=== PATIENT | female | born 1995 | race Caucasian/White ===

== ENCOUNTER 2018-10-04 20:47 | Emergency (ER) | payer OTHER ==
[~2018-10-04 20:47] MED LIST: ALPR-624 PO; ARIP5TAB4 PO; FAMO-128 PO; NITR-60 PO; NO HOME MEDS
== END 2018-10-05 00:13 | disposition left against medical advice (07) ==
LOC: ER 20:47
DX: R10.9 Unspecified abdominal pain (principal); Z53.21 Procedure and treatment not carried out due to patient leaving prior to being seen by health care provider

== ENCOUNTER 2019-06-04 11:11 | Outpatient (CLI) | payer OTHER ==
[~2019-06-04 11:11] MED LIST changes: +ARIP5TAB14 PO; -ARIP5TAB4 PO
== END 2019-06-04 23:59 | disposition home or self-care (01) ==
LOC: 64 CT 11:11
PROVIDERS: ATTEND Family Medicine
DX: Z87.81 Personal history of (healed) traumatic fracture (principal)
CPT/HCPCS: 70486

== ENCOUNTER 2019-09-18 08:53 | Outpatient (CLI) | payer OTHER | END 2019-09-18 23:59 | disposition home or self-care (01) | LOC: RAD 08:53 | PROVIDERS: ATTEND Family Medicine | DX: N83.202 Unspecified ovarian cyst, left side (principal); N83.201 Unspecified ovarian cyst, right side; Z30.432 Encounter for removal of intrauterine contraceptive device | CPT/HCPCS: 76830; 76856 ==

== ENCOUNTER 2019-10-17 17:03 | Emergency (ER) | payer OTHER ==
[~2019-10-17] VITALS: Ht 149.9 cm; Wt 45.5 kg
[2019-10-17 17:04] VITALS: BP 129/74
--- NOTE | 2019-10-17 17:49 | NUR ---
Collected swab and sent to lab.
--- NOTE | 2019-10-20 09:13 | NUR ---
Call[facility]
== END 2019-10-17 18:10 | disposition home or self-care (01) ==
LOC: ER 17:04
DX: R50.9 Fever, unspecified (principal); Z20.828 Contact with and (suspected) exposure to other viral communicable diseases; F41.9 Anxiety disorder, unspecified; F32.9 Major depressive disorder, single episode, unspecified; F12.90 Cannabis use, unspecified, uncomplicated; Z88.8 Allergy status to other drugs, medicaments and biological substances
CPT/HCPCS: 36415; 87635; 99283

== ENCOUNTER 2019-12-03 05:38 | Day surgery (SDC) | payer OTHER ==
[2019-11-27 15:59] LABS: CLARITY,URINE CLEAR (Clear); COLOR,URINE STRAW (Yellow); GLUCOSE, URINE NEGATIVE (Neg); KETONES,URINE NEGATIVE (Neg); LEUKOCYTE ESTERASE ,URINE TRACE (Neg); NITRITES, URINE NEGATIVE (Neg); OCCULT BLOOD,URINE TRACE-INTACT (Neg); PROTEIN,URINE NEGATIVE (Neg); UA COLLECTION TYPE CLN CATCH MIDSTREAM; UROBILINOGEN,URINE 0.2 E.U/dL (0.2-1.0)
[2019-11-27 16:02] LABS: BASOPHILS % (AUTO) 0.5 % (0-1); EOSINOPHILS # (AUTO) 0.1 X10'3 (0-0.9); EOSINOPHILS % (AUTO) 1.1 % (0-6); LYMPHOCYTES # (AUTO) 1.9 X10'3 (1.1-4.8); LYMPHOCYTES % (AUTO) 33.2 % (21-51); MEAN CORPUSCULAR HEMOGLOBIN 32.5 PG (27.0-31.0); MEAN CORPUSCULAR HGB CONC 33.4 g/dL (33.0-36.5); MEAN CORPUSCULAR VOLUME 97.3 FL (78-98); MEAN PLATELET VOLUME 10.8 FL (7.4-10.4); MONOCYTES # (AUTO) 0.4 X10'3 (0-0.9); MONOCYTES % (AUTO) 6.6 % (2-12); NEUTROPHILS # (AUTO) 3.3 X10'3 (1.8-7.7); NEUTROPHILS % (AUTO) 58.6 % (42-75); PRE OP HEMATOCRIT 42.8 % (35.0-45.0); PRE OP HEMOGLOBIN 14.3 g/dL (12.0-16.0); PRE OP PLATELET COUNT 176 X10'3 (140-440); RED CELL DISTRIBUTION WIDTH 12.6 % (11.5-14.5)
[2019-11-27 16:10] LABS: BACTERIA,URINE FEW /HPF (Neg); RBC,URINE 0-2 /HPF (0-2); SQUAMOUS EPITHELIAL CELL,UR MODERATE /LPF (FEW); WBC,URINE 0-4 /HPF (0-4)
[2019-11-27 16:16] LABS: ALBUMIN 4.6 G/DL (3.4-5.0); ALBUMIN/GLOBULIN RATIO 1.3 (1.1-1.5); ALKALINE PHOSPHATASE 61 IU/L (46-116); BLOOD UREA NITROGEN 8 MG/DL (7-18); BUN/CREATININE RATIO 11.4 (6.6-38.0); CALCIUM 9.1 MG/DL (8.5-10.1); CHLORIDE 104 MMOL/L (99-107); PRE OP ALT 14 U/L (30-65); PRE OP ANION GAP 10 (8-16); PRE OP AST 15 U/L (10-37); PRE OP BILIRUB, TOTAL 0.6 MG/DL (0.0-1.0); PRE OP GLUCOSE 84 MG/DL (70-104); PRE OP POTASSIUM 3.6 MMOL/L (3.4-5.1); PRE OP SODIUM 141 MMOL/L (135-145); TOTAL CARBON DIOXIDE 27.4 MMOL/L (24-32); TOTAL PROTEIN 8.2 G/DL (6.4-8.2); eGFR > 90 ML/MIN
[2019-11-27 16:19] LABS: PRE OP INR 1.1 INR; PRE OP PROTIME 11.1 SECONDS (9.0-12.0)
[2019-11-27 16:21] LABS: HCG SERUM QL NEGATIVE
[~2019-12-03] VITALS: Ht 152.4 cm; Wt 45.4 kg
[2019-12-03] VITALS (8 sets, daily range): BP systolic 9–128; BP diastolic 58–98
[~2019-12-03 05:38] MED LIST changes: -ALPR-624 PO; -ARIP5TAB14 PO; -FAMO-128 PO; -NITR-60 PO; +ceFOXitin sod/dextrose 2g/50ml 50 ML IV ONE; +famotidine 20mg tablet PO ONE; +ringers solution, lacted 1,000 ML IV SCH
[2019-12-03] MEDS ORDERED: sevoflurane 250ml liquid IH ONE (07:20)
[2019-12-03] MEDS ORDERED: midazolam 2 mg/2 ml injection ONE (07:22)
[2019-12-03] MEDS ORDERED: fentaNYL/PF 50MCG/1 ML 2ML syringe ONE (07:22)
[2019-12-03] MEDS ORDERED: propofol inj 20 ML IV ONE (07:23)
[2019-12-03] MEDS ORDERED: ondansetron/PF 4mg/2ml inj ONE (07:24)
[2019-12-03] MEDS ORDERED: dexamethasone sod phosphate 4mg/ml inj. ONE (07:24)
[2019-12-03] MEDS ORDERED: LIDOcaine 2% (20mg/ml) 5ml vial ONE (07:24)
--- NOTE | 2019-12-03 08:00 | NUR ---
Received from OR via BED, accompanied by Anesthesiologist --trip- and report given by Anesthesiolgist. PATIENT A&OX4, DENIES PAIN, V/S WNL, NEUROVASCULAR CHECKS INTACT, G PIV UE, SCD ON, perpad with scant spotting.
[2019-12-03] MEDS ORDERED: ringers solution, lacted 1,000 ML IV SCH (08:13)
[2019-12-03] MEDS ORDERED: morphine 4 MG/ML inj SYRINge IV PRN (08:15)
[2019-12-03] MEDS ORDERED: morphine 2 MG/ML inj. syringe IV PRN (08:15)
[2019-12-03] MEDS ORDERED: ondansetron/PF 4mg/2ml inj IV PRN (08:15)
[2019-12-03] MEDS ORDERED: meperidine/PF 25mg/ml syringe IV PRN ×3 (08:15)
[2019-12-03] MEDS ORDERED: proCHLORperazine 10 MG/2 ml inj IV PRN (08:15)
[2019-12-03] MEDS ORDERED: ketorolac trometh. 30mg/ml inj. IV ONE (08:20)
--- NOTE | 2019-12-03 09:00 | NUR ---
PATIENT A&OX4, DENIES PAIN, V/S WNL, NEUROVASCULAR CHECKS INTACT, 20G PIV RUE D/C, SCD OFF, Lian pad with scant spotting. SCRIPT GIVEN. I HAVE REVIEWED D/C INSTRUCTIONS WITH PATIENT AND FAMILY AND THEY HAVE VERBALIZED UNDERSTANDING. PATIENT D/C HOME WITH ALL BELONGINGS AND FAMILY GAVE TRANSPORT HOME.
== END 2019-12-03 09:00 | disposition home or self-care (01) ==
LOC: PAS 05:38
PROVIDERS: ATTEND Obstetrics & Gynecology
DX: Z30.432 Encounter for removal of intrauterine contraceptive device (principal); F41.9 Anxiety disorder, unspecified; F32.9 Major depressive disorder, single episode, unspecified; F17.210 Nicotine dependence, cigarettes, uncomplicated; Z98.890 Other specified postprocedural states; Z79.01 Long term (current) use of anticoagulants; Z79.899 Other long term (current) drug therapy; Z11.59 Encounter for screening for other viral diseases
CPT/HCPCS: 36415; 58301; 80053; 81001; 82948; 84703; 85025; 85610; 85730; 86885; 86900; 86901; 87088; 87635; J0694; J1100; J2001; J2250; J2405; J2704; J3010; A4355; A4618; J7120

== ENCOUNTER 2020-11-11 11:25 | Emergency (ER) | payer OTHER, BC ==
[~2020-11-11] VITALS: Ht 149.9 cm; Wt 45.5 kg
[~2020-11-11 11:25] MED LIST changes: -ceFOXitin sod/dextrose 2g/50ml 50 ML IV ONE; -famotidine 20mg tablet PO ONE; -ringers solution, lacted 1,000 ML IV SCH
[2020-11-11] MEDS ORDERED: DIAZ5TAB22 PO (12:59)
[2020-11-11 13:00] VITALS: BP 110/73
== END 2020-11-11 13:05 | disposition home or self-care (01) ==
LOC: EEVIPCON 11:28 → ER 11:28
DX: S16.1XXA Strain of muscle, fascia and tendon at neck level, initial encounter (principal); S39.012A Strain of muscle, fascia and tendon of lower back, initial encounter; M62.830 Muscle spasm of back; F41.9 Anxiety disorder, unspecified; F32.9 Major depressive disorder, single episode, unspecified; F12.90 Cannabis use, unspecified, uncomplicated; Z72.89 Other problems related to lifestyle; Z88.8 Allergy status to other drugs, medicaments and biological substances; Z79.899 Other long term (current) drug therapy; V87.7XXA Person injured in collision between other specified motor vehicles (traffic), initial encounter; Y93.89 Activity, other specified; Y92.488 Other paved roadways as the place of occurrence of the external cause; Y99.8 Other external cause status
CPT/HCPCS: 71046; 99283

== ENCOUNTER 2021-02-10 11:34 | Outpatient (CLI) | payer BC | END 2021-02-10 23:59 | disposition home or self-care (01) | LOC: LAB 11:34 | PROVIDERS: ATTEND Physician Assistant | DX: Z34.90 Encounter for supervision of normal pregnancy, unspecified, unspecified trimester (principal) | CPT/HCPCS: 36415; 84702 ==

== ENCOUNTER 2021-02-20 09:45 | Outpatient (CLI) | payer BC | END 2021-02-20 23:59 | disposition home or self-care (01) | LOC: RAD 09:45 | PROVIDERS: ATTEND Physician Assistant | DX: Z34.92 Encounter for supervision of normal pregnancy, unspecified, second trimester (principal); Z3A.13 13 weeks gestation of pregnancy | CPT/HCPCS: 76801 ==

== ENCOUNTER 2021-05-25 08:28 | Outpatient (CLI) | payer BC ==
[2021-05-25 10:19] LABS: BASOPHILS % (AUTO) 0.2 % (0-1); EOSINOPHILS % (AUTO) 0.6 % (0-6); HEMATOCRIT 31.6 % (35.0-45.0); HEMOGLOBIN 10.7 g/dl (12.0-16.0); LYMPHOCYTES # (AUTO) 1.4 X10'3 (1.1-4.8); LYMPHOCYTES % (AUTO) 16.5 % (21-51); MEAN CORPUSCULAR HEMOGLOBIN 32.8 PG (27.0-31.0); MEAN CORPUSCULAR HGB CONC 33.9 g/dL (33.0-36.5); MEAN CORPUSCULAR VOLUME 96.7 FL (78-98); MEAN PLATELET VOLUME 9.1 FL (7.4-10.4); MONOCYTES # (AUTO) 0.7 X10'3 (0-0.9); MONOCYTES % (AUTO) 7.9 % (2-12); NEUTROPHILS # (AUTO) 6.2 X10'3 (1.8-7.7); NEUTROPHILS % (AUTO) 74.8 % (42-75); PLATELET COUNT 220 X10'3 (140-440); RED BLOOD COUNT 3.27 X10'6 (4.20-5.60); RED CELL DISTRIBUTION WIDTH 13.1 % (11.5-14.5); WHITE BLOOD COUNT 8.3 X10'3 (4.5-11.0)
== END 2021-05-25 23:59 | disposition home or self-care (01) ==
LOC: LAB 08:28
PROVIDERS: ATTEND Obstetrics & Gynecology Obstetrics
DX: Z34.92 Encounter for supervision of normal pregnancy, unspecified, second trimester (principal)
CPT/HCPCS: 36415; 82103; 82950; 85025; 86592

== ENCOUNTER 2022-01-10 02:00 | Emergency (ER) | payer BC, MEDICAID ==
[~2022-01-10] VITALS: Ht 149.9 cm; Wt 46.6 kg
[2022-01-10 02:07] VITALS: BP 99/61
[2022-01-10] MEDS ORDERED: ondansetron/PF 4mg/2ml inj IV ONE (02:25)
[2022-01-10] MEDS ORDERED: normal saline 1000ML IV soln IVB ONE (02:25)
[2022-01-10] MEDS ORDERED: ONDA4TAB12 PO (02:55)
== END 2022-01-10 04:13 | disposition home or self-care (01) ==
LOC: ER 02:01
DX: R11.2 Nausea with vomiting, unspecified (principal); R10.9 Unspecified abdominal pain; F12.10 Cannabis abuse, uncomplicated; F41.9 Anxiety disorder, unspecified; F32.A Depression, unspecified; F17.210 Nicotine dependence, cigarettes, uncomplicated; Z88.6 Allergy status to analgesic agent; Z79.899 Other long term (current) drug therapy
CPT/HCPCS: 96361; 96374; 99283; J2405; J7030

== ENCOUNTER 2022-07-23 23:08 | Emergency (ER) | payer BC, MEDICAID ==
[~2022-07-23] VITALS: Ht 149.9 cm; Wt 48.0 kg
[~2022-07-23 23:08] MED LIST changes: +ONDA4TAB12 PO
[2022-07-23 23:17] VITALS: BP 113/75
[2022-07-23] MEDS ORDERED: LIDOcaine 1% 30ml preserv. free vial IJ ONE (23:50)
[2022-07-24] MEDS ORDERED: acetaminophen 325mg tablet PO STA (01:20)
== END 2022-07-24 01:41 | disposition home or self-care (01) ==
LOC: ER 23:09
DX: S61.217A Laceration without foreign body of left little finger without damage to nail, initial encounter (principal); W45.8XXA Other foreign body or object entering through skin, initial encounter; Y93.89 Activity, other specified; Y92.89 Other specified places as the place of occurrence of the external cause; Y99.8 Other external cause status
CPT/HCPCS: 12001; 99282

== ENCOUNTER 2024-01-07 14:32 | Emergency (ER) | payer MEDICAID, OTHER ==
[~2024-01-07] VITALS: Ht 149.9 cm; Wt 40.8 kg
[2024-01-07 14:43] VITALS: BP 111/67; PULSE 83; O2SAT 98
[2024-01-07 15:34] VITALS: RESP 16; TEMP 97.5
== END 2024-01-07 15:37 | disposition home or self-care (01) ==
LOC: ER 14:33
DX: S93.492A Sprain of other ligament of left ankle, initial encounter (principal); S96.812A Strain of other specified muscles and tendons at ankle and foot level, left foot, initial encounter; F41.9 Anxiety disorder, unspecified; F32.A Depression, unspecified; F12.90 Cannabis use, unspecified, uncomplicated; Z72.89 Other problems related to lifestyle; Z88.8 Allergy status to other drugs, medicaments and biological substances; W10.8XXA Fall (on) (from) other stairs and steps, initial encounter; Y93.89 Activity, other specified; Y92.098 Other place in other non-institutional residence as the place of occurrence of the external cause; Y99.8 Other external cause status
CPT/HCPCS: 29515; 73610; 99284; L1930